=== PATIENT | female | born 1985 | race Caucasian/White ===

== ENCOUNTER 2018-07-17 00:37 | Emergency (ER) | payer OTHER, MEDICAID, SELFPAY ==
[2018-07-17 00:45] VITALS: BP 164/117; PULSE 105; RESP 20; TEMP 36.1; O2SAT 99; BMI 21.6
--- NOTE | 2018-07-17 01:04 | ED.URI ---
HPI - URI/Sore Throat General Chief Complaint: Upper Respiratory Symptoms Stated Complaint: sore throat runny cough x1 day Time Seen by Provider: 07/17/18 01:04 Source: patient Mode of arrival: ambulatory Limitations: no limitations History of Present Illness HPI Narrative: Patient is a 33-year-old female presenting with upper respiratory like symptoms, sore throat and runny nose. He denies any fever but feels like maybe she has had some sweats and chills over the last few days. No productive cough or chest pain. She is nervous because she has a premature baby she does not wanted the baby sick. She also has a history of preeclampsia she has not yet picked up her blood pressure medication which was prescribed to her recently but she plans on doing that tomorrow MD Complaint: sore throat and rhinorrhea Onset (ago): day(s) Duration: intermittent Severity: mild Relieving factors: nothing Exacerbating factors: nothing Description of mucous: clear and watery Able to tolerate fluids by mouth: Yes Related Data Home Medications Medication Instructions Recorded Confirmed levonorgestrel [Mirena] 52 mg IU #0 12/21/11 PROPRANOLOL HYDROCHLORIDE #0 04/28/12 (Propranolol HCl) venlafaxine [Effexor XR] #0 04/28/12 Review of Systems Review of Systems ROS Unobtainable: All systems reviewed & are unremarkable except as noted in HPI and below Constitutional Denies chills, Denies fever(s), Denies lethargy and Denies weakness ENT Ears, Nose, Mouth, and Throat: Reports as per HPI, Denies facial pain, Denies hoarseness, Reports nasal discharge, Reports sinus pressure and Reports sore throat Cardiovascular Denies chest pain, Denies irregular heart rhythm, Denies lightheadedness, Denies palpitations, Denies dyspnea, Denies dyspnea on exertion and Denies orthopnea Respiratory Denies cough, Denies dyspnea, Denies dyspnea on exertion and Denies wheezing Gastrointestinal Gastrointestinal: Denies abdominal pain, Denies change in bowel habits, Denies diarrhea, Denies nausea and Denies vomiting Musculoskeletal Denies back pain, Denies muscle weakness, Denies numbness and Denies tingling Integumentary/Breasts Denies pruritus, Denies erythema, Denies rash and Denies wounds Neurologic Denies confusion, Denies numbness, Denies tingling and Denies weakness Psychiatric Denies anxiety, Denies confusion, Denies depression, Denies homicidal ideation and Denies suicidal ideation Endocrine Denies palpitations Allergic/Immunologic Denies wheezing PFSH Medical History Preeclampsia (Acute) Social History Smoking Status: Current every day smoker Social History Smoking Status: Current every day smoker Exam Initial Vital Signs Initial Vital Signs: Vital Signs Temperature 97 F L 07/17/18 00:45 Pulse Rate 105 H 07/17/18 00:45 Respiratory Rate 20 07/17/18 00:45 Blood Pressure 164/117 H 07/17/18 00:45 Pulse Oximetry 99 07/17/18 00:45 GENERAL: Anxious well-appearing female in no acute distress HEENT: Head atraumatic,EOMI, pupils reactive, some mild right facial pain to palpation EARS: Tympanic membranes visualized, no erythema or bulging, no hemotympanum PHARYNX: No erythema, no tonsillar exudate, no cervical lymphadenopathy CARDIOVASCULAR: Regular rate and rhythm without murmurs, rubs or gallops. RESPIRATORY: Breath sounds equal bilaterally, no wheezes rales or rhonchi. ABDOMEN: Soft, nontender. Normoactive bowel sounds all 4 quadrants. No guarding or rebound. EXTREMITIES: Normal range of motion, no clubbing or edema. Neurovascularly intact NEUROLOGICAL: Alert and oriented x4.Normal gait and speech. SKIN: Warm, dry, no laceration, no petechiae, no rashes or lesions. Course Vital Signs - 8 hr 07/17/18 00:45 07/17/18 01:12 Temperature 97 F L Pulse Rate 105 H 96 H Respiratory Rate 20 18 Blood Pressure 164/117 H 160/103 H Pulse Oximetry 99 99 MDM - URI/Sore Throat MDM Narrative Medical decision making narrative: The patient is afebrile, she has not taken anything for fever. Her throat is non erythematous she really does not have signs or symptoms of influenza. We discussed how she should gown up and wear mask well visiting her infant. She also understands that she will start taking her blood pressure medication. Discharge Plan Departure Patient Disposition: Home Clinical Impression: Upper respiratory infection Qualifiers: URI type: unspecified viral URI Qualified Code(s): J06.9 - Acute upper respiratory infection, unspecified Discharge Date/Time: 07/17/18 01:12 Interventions: ED Discharge Assessment Last Done: 07/17/18 01:12 Instructions: Common Cold, DI for Viral Upper Respiratory Infection -- Adult Activity Restrictions/Additional Instructions: *You have been diagnosed with upper respiratory infection *What to do: At this time no indication for antibiotics. Recommend wearing gown mask on washing hands while holding premature *Continue to take medications as directed -take blood pressure medication as prescribed her blood pressure is noted to be elevated here *Follow up with your primary care provider in 2-3 days *Return to ER if you should have fever more than 100.4, increased difficulty breathing, worsening cough or any new, worsening or concerning symptoms Prescriptions: No Action levonorgestrel [Mirena] 1 EACH intrauterine device 52 mg IU Qty: 0 RF: 0 venlafaxine [Effexor XR] 37.5 MG capsule,extended release 24hr Qty: 0 RF: 0 PROPRANOLOL HYDROCHLORIDE (Propranolol HCl) Qty: 0 RF: 0
[2018-07-17 01:12] VITALS: BP 160/103; PULSE 96; RESP 18; O2SAT 99
--- NOTE | 2018-07-17 01:13 | PC.NURSE ---
Sh e knows she has high b/p.has not been taking her medication for it,DR Martin notified,teaching done concerning high blood pressure.
== END 2018-07-17 01:12 | disposition home or self-care (01) ==
PROVIDERS: Emergency Provider Emergency Medicine
DX: J06.9 Acute upper respiratory infection, unspecified (principal)
CPT/HCPCS: 99282